=== PATIENT | male | born 2000 | race Caucasian/White ===

== ENCOUNTER 2022-09-08 12:08 | Outpatient (CLI) | payer OTHER, SELFPAY ==
[2022-09-08 14:33] LABS: Liquefaction Semen Complete in 30 min. (<30 minutes); Semen Color Opaque (Grey-opaque); Semen Immotility 70 %; Semen Morphology Result to Follow; Semen Non-Progressive Motility 20 %; Semen Progressive Motility 10 % (>32); Semen Total Motility 30 (>40% (PM+NP)); Semen Viscosity Not Increased (Not Increa.); Sperm Count 27.6 Mil/mL (60-150 million/mL)
[2022-09-16 21:18] LABS: Fructose, Semen 55 mg/dL (150-600)
== END 2022-09-08 12:09 | disposition home or self-care (01) ==
LOC: CHSLAB 12:09
PROVIDERS: PCP Family Medicine; Visit Provider Nurse Practitioner
DX: Z31.41 Encounter for fertility testing (principal)
CPT/HCPCS: 82757; 88160; 89320